=== PATIENT | female | born 1995 ===

== ENCOUNTER 2017-07-01 13:10 | Observation (INO) | payer MEDICAID | END 2017-07-01 14:05 | disposition home or self-care (01) | DRG 566 | LOC: LDRP 13:10 | PROVIDERS: ADMIT Obstetrics & Gynecology; ATTEND Obstetrics & Gynecology | DX: O26.893 Other specified pregnancy related conditions, third trimester (principal); R10.9 Unspecified abdominal pain; Z3A.30 30 weeks gestation of pregnancy | CPT/HCPCS: 59025; 81002; G0378 ==